=== PATIENT | male | born 1990 | race Caucasian/White ===

== ENCOUNTER → 2020-12-05 16:08 | Outpatient (CLI) | payer BC, SELFPAY ==
--- NOTE | 2020-12-05 | VAS_PTH ---
PATIENT: NALDO SANTIAGO LOC: [facility] U#:[id number] AGE/SX: 35/M ROOM: RE12/05/[address]: Dr. Miguel Bae MD : 1990 BED: DIS: SPEC #: [id number] RECD: 12/05/20 15:50 STATUS: WILNER CAROLYN #: [id number] JEREL: 12/05/20 00:[address]: Miguel Bae DEPT: SURGICAL PATHOLOGY RECD BY: Tay Corley ENTERED: 12/08/20 08:28 SP TYPE: VAS OTHR DR: No Primary Care Phys Tissues: A - Vas deferens, NOS B - Vas deferens, NOS Procedures: Surgery Specimen Level II HEADER OPERATION: Bilateral partial vasectomy PRE-OP DIAGNOSIS: Sterilization TISSUE SUBMITTED: A - Right vas deferens, B - Left vas deferens MICROSCOPIC DIAGNOSIS A. Right vas deferens, partial vasectomy: Completely transected segment of vas deferens, no pathologic diagnosis. B. Left vas deferens, partial vasectomy: Completely transected segment of vas deferens, no pathologic diagnosis. DEEP:usha 12/09/2020 MICROSCOPIC DESCRIPTION Slides are reviewed. GROSS DESCRIPTION A - Received is one container designated right vas deferens. The specimen consists of a tubular segment of sommer soft tissue measuring 0.6 cm in length and 0.3 cm in diameter. The entire specimen is submitted in one cassette. It will be sectioned at the time of embedding. B - Received is one container designated left vas deferens. The specimen consists of a tubular segment of sommer soft tissue measuring 0.6 cm in length and 0.2 cm in diameter. The entire specimen is submitted in one cassette. It will be sectioned at the time of embedding. / DEEP:usha 12/08/20 TC:4 CPT: 14861 x2
== END ==
PROVIDERS: Referring Provider Surgery; Visit Provider Surgery
DX: Z30.2 Encounter for sterilization (principal)
CPT/HCPCS: 88302

== ENCOUNTER → 2021-01-02 14:50 | Outpatient (CLI) | payer BC, SELFPAY ==
[2021-01-05 13:30] LABS: Semen Analysis Post Vas ABSENT
== END ==
PROVIDERS: Referring Provider Surgery; Visit Provider Surgery
DX: Z30.2 Encounter for sterilization (principal)
CPT/HCPCS: 89321

== ENCOUNTER → 2021-01-15 15:13 | Outpatient (CLI) | payer BC, SELFPAY ==
[2021-01-16 13:08] LABS: Semen Analysis Post Vas ABSENT
== END ==
PROVIDERS: Referring Provider Surgery; Visit Provider Surgery
DX: Z30.2 Encounter for sterilization (principal)
CPT/HCPCS: 89321